=== PATIENT | female | born 1990 | race Caucasian/White ===

== ENCOUNTER 2021-10-07 11:26 | Emergency (ER) | payer OTHER ==
[~2021-10-07] VITALS: Ht 175.3 cm; Wt 63.5 kg
[2021-10-07 12:30] LABS: HEMATOCRIT 45.6 % (37.0-47.0); HEMOGLOBIN 14.2 gm/dL (12.0-15.0); MCH 26.9 pg (26.0-34.0); MCHC 31.2 g/dL (28.0-37.0); MCV 86.2 fL (80.0-100.0); MPV 7.7 fl. (7.2-11.1); RBC 5.29 mil/uL (4.20-5.00); RDW-CV 13.9 % (10.5-14.5); WBC 13.5 thou/uL (4.0-11.0)
[2021-10-07 12:47] LABS: CALCIUM 9.5 mg/dL (8.5-10.1); CREATININE 1.1 mg/dL (0.6-1.3)
[2021-10-07 12:52] LABS: ALBUMIN 4.4 g/dL (3.4-5.0); TOTAL BILIRUBIN 0.5 mg/dL (<0.1-1.0); TOTAL PROTEIN 8.1 g/dL (6.4-8.2)
[2021-10-07 13:29] LABS: URINE BILIRUBIN NEGATIVE (Negative); URINE BLOOD NEGATIVE (Negative); URINE CLARITY CLEAR; URINE COLOR YELLOW; URINE GLUCOSE-RANDOM NEGATIVE (Negative); URINE KETONES 1+ (Negative); URINE LEUKOCYTES-REFLEX TRACE (Negative); URINE NITRITE-REFLEX NEGATIVE (Negative); URINE PROTEIN NEGATIVE (Negative); URINE SPECIFIC GRAVITY >= 1.030 (1.005-1.030); URINE UROBILINOGEN 0.2 E.U./dl (0.2-1.0)
[2021-10-07] MEDS ORDERED: CIPRO500 M1 PO (14:18)
[2021-10-07] MEDS ORDERED: METRONIDAZOLE500 M4 PO (14:18)
[2021-10-07] MEDS ORDERED: APAP W/CODEINE1 TA2 PO (14:18)
[2021-10-07 14:27] VITALS: BP 113/69
[2021-10-07] MEDS ORDERED: ONDANSETRON ODT4 MG PO (14:56)
== END 2021-10-07 14:27 | disposition home or self-care (01) ==
LOC: M.ERS 11:26
PROVIDERS: Physician Assistant
DX: R10.13 Epigastric pain (principal)